=== PATIENT | male | born 1960 ===

== ENCOUNTER 2021-04-04 12:05 | Day surgery (SDC) | payer OTHER ==
[~2021-04-04 12:05] MED LIST: ACEASPCAF; LISI10
--- NOTE | 2021-04-04 16:40 | NUR ---
1542: INFUSION STOPPED AND PT DRINKING PEPSI, HAS ZERO COMPLAINTS 1605: PT WATCHING TV AND HAS NO S/S OF ADVERSE EFFECT
--- NOTE | 2021-04-04 17:07 | NUR ---
1705 PT D/C HOME, HE STATED THAT HE "FEELS TIRED" VSS, BIOXING AT 93%, ALERTED PT TO GO TO ER OR CALL AMBULANCE IF HE STARTS FEELING WORSE OR HAS ANY OTHER ADVERSE CHANGES.
== END 2021-04-04 17:05 | disposition home or self-care (01) ==
LOC: ATC 12:05
DX: U07.1 COVID-19 (principal); I10 Essential (primary) hypertension; R73.03 Prediabetes
CPT/HCPCS: 96365; Q0243